=== PATIENT | male | born 1980 | race Caucasian/White ===

== ENCOUNTER 2022-10-30 21:11 | Emergency (ER) | payer OTHER ==
[2022-10-30] MEDS ORDERED: Famotidine 20 MG/2 ML SDV IVPUSH ONE (21:18)
[2022-10-30] MEDS ORDERED: Lactated Ringers 1,000 ML IV STA (21:18)
[2022-10-30 22:12] LABS: CORONAVIRUS COVID-19 NAA POSITIVE (NEGATIVE); INFLUENZA A NAA NEGATIVE (NEGATIVE); INFLUENZA B NAA NEGATIVE (NEGATIVE); RESPIRATORY SYNCYTIAL VIR NAA NEGATIVE (NEGATIVE)
[2022-10-30 22:21] LABS: BLOOD UREA NITROGEN,BUN 25 mg/dL (7.0-18.0); CARBON DIOXIDE,CO2 26.3 mmol/L (21.0-32.0); CHLORIDE,CL 105 mmol/L (98-107); GLUCOSE RANDOM 167 mg/dL (74-106); SODIUM,NA 142 mmol/L (136-148)
[2022-10-30 22:25] LABS: ESTIMATED GFR 109 mL/min (>60)
== END 2022-10-31 01:45 | disposition home or self-care (01) ==
LOC: MW.ED 21:11
DX: L50.0 Allergic urticaria (principal); U07.1 COVID-19
CPT/HCPCS: 0241U; 36415; 71045; 80053; 83735; 85025; 85652; 86140; 96374; 99285; J3490; J7120